=== PATIENT | male | born 1980 | race African-American/Black ===

== ENCOUNTER 2019-11-25 10:39 | Emergency (ER) | payer MEDICARE, MEDICAID ==
[~2019-11-25] VITALS: Ht 172.7 cm; Wt 106.6 kg
[2019-11-25 10:49] VITALS: BP 133/83
[2019-11-25] MEDS ORDERED: CARVEDILOL25 MG PO (10:53)
[2019-11-25] MEDS ORDERED: ELIQUIS5 MG PO (10:53)
[2019-11-25] MEDS ORDERED: COZAAR 25 MG TA25 M1 PO (10:53)
[2019-11-25] MEDS ORDERED: NOVOLOG100 UNIT/M SUBQ (10:54)
[2019-11-25] MEDS ORDERED: ASA81BEC PO (10:55)
[2019-11-25] MEDS ORDERED: VENTOLIN HFA INH8 GM INH (10:55)
[2019-11-25] MEDS ORDERED: LANTUS SUBQ (10:55)
[2019-11-25] MEDS ORDERED: TRAMADOL 50 MG50 MG PO (11:16)
== END 2019-11-25 11:26 | disposition home or self-care (01) ==
LOC: M.ERS 10:39
DX: I80.9 Phlebitis and thrombophlebitis of unspecified site (principal); I10 Essential (primary) hypertension; E11.9 Type 2 diabetes mellitus without complications; F17.290 Nicotine dependence, other tobacco product, uncomplicated; Z88.6 Allergy status to analgesic agent; Z88.0 Allergy status to penicillin